=== PATIENT | female | born 1980 | race Caucasian/White ===

== ENCOUNTER 2020-06-03 16:48 | Emergency (ER) | payer MEDICAID ==
[~2020-06-03] VITALS: Ht 167.6 cm; Wt 72.7 kg
[2020-06-03 16:49] VITALS: BP 125/59
== END 2020-06-03 17:59 | disposition home or self-care (01) ==
LOC: EMS 16:48
DX: U07.1 COVID-19 (principal)
CPT/HCPCS: 87426; 99283; U0003

== ENCOUNTER 2020-07-16 17:24 | Emergency (ER) | payer MEDICAID ==
[~2020-07-16] VITALS: Ht 152.4 cm; Wt 66.8 kg
[2020-07-16 18:41] LABS: COVID AG,FIA SOURCE NASOPHARYNGEAL
[2020-07-16 19:54] LABS: BASOPHILS % (AUTO) 0.3 % (0.0-2.0); EOSINOPHILS % (AUTO) 1.8 % (1.0-6.0); LYMPHOCYTES # (AUTO) 1.1 K/uL (1.0-4.8); LYMPHOCYTES % (AUTO) 17.6 % (22.0-44.0); MEAN CORPUSCULAR HEMOGLOBIN 28.7 pg (26.0-34.0); MEAN CORPUSCULAR HGB CONC 33.2 G/dL (31.0-37.0); MEAN CORPUSCULAR VOLUME 86 fL (80-100); MONOCYTES # (AUTO) 0.5 K/uL (0.1-1.0); MONOCYTES % (AUTO) 7.8 % (2.0-9.0); NEUTROPHILS # (AUTO) 4.7 K/uL (1.8-7.7); NEUTROPHILS % (AUTO) 72.5 % (40.0-70.0); PLATELET COUNT (AUTO) 256 K/uL (150-450); RED BLOOD CELL COUNT(AUTO) 4.17 MIL/uL (4.00-5.20); RED CELL DISTRIBUTION WIDTH 16.3 % (11.5-14.5)
[2020-07-16 19:56] LABS: ANION GAP 7 mmol/L (8-16); CALCIUM, TOTAL 8.1 mg/dL (8.8-10.5); CARBON DIOXIDE 28 mmol/L (22-29); CHLORIDE 104 mmol/L (98-107); GLOMERULAR FILTR. RATE CALC > 60 mL/min (>60); GLUCOSE,RANDOM 96 mg/dL (70-110); POTASSIUM 3.8 mmol/L (3.5-5.1); SODIUM SERUM 139 mmol/L (136-145); UREA NITROGEN, BLOOD 9 mg/dL (7-18)
[2020-07-16 20:01] LABS: ALANINE AMINOTRANSFERASE 23 U/L (12-78); ALBUMIN 3.3 g/dL (3.4-5.0); ALKALINE PHOSPHATASE 59 U/L (46-116); ASPARTATE AMINOTRANSFERASE 21 U/L (15-37); BILIRUBIN,TOTAL 0.4 mg/dL (0.1-1.0); TOTAL PROTEIN, SERUM 6.7 g/dL (6.4-8.2)
[2020-07-16 20:13] VITALS: BP 117/79
[2020-07-16] MEDS ORDERED: IBUPROFEN 600 MG TABLET PO ONE (20:15)
== END 2020-07-16 20:51 | disposition home or self-care (01) ==
LOC: EMS 17:24
DX: B34.9 Viral infection, unspecified (principal); Z20.828 Contact with and (suspected) exposure to other viral communicable diseases
CPT/HCPCS: 87426

== ENCOUNTER 2020-10-02 14:07 | Emergency (ER) | payer MEDICAID ==
[~2020-10-02] VITALS: Ht 162.6 cm; Wt 63.6 kg
[2020-10-02 14:22] VITALS: BP 116/78
[2020-10-02 15:52] LABS: COVID AG,FIA SOURCE NASOPHARYNGEAL
== END 2020-10-02 15:43 | disposition home or self-care (01) ==
LOC: EMS 14:11
DX: R51.9 Headache, unspecified (principal); J02.9 Acute pharyngitis, unspecified; Z20.822 Contact with and (suspected) exposure to COVID-19
CPT/HCPCS: 87426; 99283; U0003